=== PATIENT | female | born 1960 | race Hispanic/Latino ===

== ENCOUNTER 2020-06-11 23:11 | Emergency (ER) | payer OTHER ==
[~2020-06-11] VITALS: Ht 172.7 cm; Wt 97.5 kg
[2020-06-11] MEDS ORDERED: DEXAMETHASONE SOD PHOS 10 MG/1 ML VIAL IV ONE (23:30)
[2020-06-11] MEDS ORDERED: ACETAMINOPHEN 325 MG TAB PO ONE (23:30)
[2020-06-11] MEDS ORDERED: CEFTRIAXONE SOD 1 GM/50 ML BAG IV ONE (23:30)
[2020-06-11] MEDS ORDERED: AZITHROMYCIN 500MG/NS 250 ML 250 ML IV ONE (23:30)
[2020-06-11 23:39] LABS: BASOPHILS % 0.5 % (0.0-1.0); EOSINOPHILS % 0.7 % (0.0-6.0); HEMOGLOBIN 14.3 g/dL (12.0-16.0); LYMPHOCYTES # (AUTO) 0.9 (1.0-3.2); LYMPHOCYTES % 15.4 % (18.0-39.1); MEAN CORPUSCULAR HEMOGLOBIN 30.2 pg (28-32); MEAN CORPUSCULAR HGB CONC 32.5 g/dL (31-35); MONOCYTES # (AUTO) 0.6 (0.2-0.8); MONOCYTES % 10.4 % (4.4-11.3); NEUTROPHILS # (AUTO) 4.2 (2.1-6.9); PLATELET COUNT 382 x10e3/uL (140-360); RED BLOOD COUNT 4.73 x10e6/uL (3.6-5.1); RED CELL DISTRIBUTION WIDTH 13.2 % (11.7-14.4)
[2020-06-11] MEDS ORDERED: SODIUM CHLORIDE 0.9% 50ML 50 ML ONE (23:47)
[2020-06-11] MEDS ORDERED: CEFTRIAXONE SOD 1 GM VIAL ONE (23:47)
[2020-06-12] LABS: ALBUMIN/GLOBULIN RATIO 0.6 (0.8-2.0); ANION GAP 18.9 mmol/L (8-16); CREATININE, SERUM 0.97 mg/dL (0.57-1.11); POTASSIUM 3.9 mmol/L (3.5-5.1)
[2020-06-12 00:06] LABS: CREATINE KINASE MB 0.3 ng/mL (0-5.0)
[2020-06-12] MEDS ORDERED: SODIUM CHLORIDE 0.9% 1000ML 1,000 ML IV ONE (01:15)
== END 2020-06-12 07:40 | disposition other institution (70) ==
LOC: ER 23:18
DX: U07.1 COVID-19 (principal); R05 Cough; J18.9 Pneumonia, unspecified organism; R09.02 Hypoxemia; Z99.81 Dependence on supplemental oxygen; R94.31 Abnormal electrocardiogram [ECG] [EKG]
CPT/HCPCS: 36415; 71045; 80053; 82550; 82553; 84484; 85025; 87040; 87071; 87205; 93005; 99284; J0456; J0696; J1100; U0002

== ENCOUNTER 2021-05-25 21:37 | Emergency (ER) | payer OTHER ==
[~2021-05-25] VITALS: Ht 172.7 cm; Wt 97.5 kg
[2021-05-25] MEDS ORDERED: ASPIRIN 81 MG CHEW TAB PO ONE (22:00)
[2021-05-25 22:02] LABS: BASOPHILS % 0.8 % (0.0-1.0); EOSINOPHILS # (AUTO) 0.3 (0.0-0.4); HEMATOCRIT 41.5 % (34.2-44.1); HEMOGLOBIN 13.4 g/dL (12.0-16.0); LYMPHOCYTES % 38.8 % (18.0-39.1); MEAN CORPUSCULAR HEMOGLOBIN 31.1 pg (28-32); MEAN CORPUSCULAR HGB CONC 32.3 g/dL (31-35); MEAN CORPUSCULAR VOLUME 96.3 fL (81-99); MONOCYTES # (AUTO) 0.5 (0.2-0.8); MONOCYTES % 9.8 % (4.4-11.3); NEUTROPHILS # (AUTO) 2.4 (2.1-6.9); NEUTROPHILS % 45.4 % (38.7-80.0); PLATELET COUNT 280 x10e3/uL (140-360); RED BLOOD COUNT 4.31 x10e6/uL (3.6-5.1); RED CELL DISTRIBUTION WIDTH 13.4 % (11.7-14.4)
[2021-05-25 22:28] LABS: ALANINE AMINOTRANSFERASE 73 IU/L (0-55); ALBUMIN 3.4 g/dL (3.5-5.0); ALBUMIN/GLOBULIN RATIO 0.9 (0.8-2.0); ALKALINE PHOSPHATASE 138 IU/L (40-150); ANION GAP 12.1 mmol/L (8-16); BLOOD UREA NITROGEN 17 mg/dL (7-26); BUN/CREATININE RATIO 18 (6-25); CALCIUM 8.7 mg/dL (8.4-10.2); CARBON DIOXIDE 24 mmol/L (22-29); CHLORIDE 110 mmol/L (98-107); CREATINE KINASE 45 IU/L (29-168); CREATININE, SERUM 0.96 mg/dL (0.57-1.11); EST GLOMERULAR FILTRATION RATE 59 ML/MIN (60-); GLUCOSE 123 mg/dL (74-118); POTASSIUM 4.1 mmol/L (3.5-5.1); SODIUM 142 mmol/L (136-145)
[2021-05-25] MEDS ORDERED: IOPAMIDOL 370 MG/ML 200 ML INFUS..BTL INJ ONE (23:04)
[2021-05-25] MEDS ORDERED: SODIUM CHLORIDE 0.9% 100 ML ONE (23:04)
[2021-05-26 00:37] VITALS: BP 134/80
== END 2021-05-26 00:41 | disposition home or self-care (01) ==
LOC: ER 21:43
DX: G45.9 Transient cerebral ischemic attack, unspecified (principal)
CPT/HCPCS: 36415; 70496; 70498; 71045; 80053; 82550; 82553; 84484; 85025; 99284; J7050; Q9967; 93005

== ENCOUNTER → 2022-07-01 | Outpatient (CLI) | payer OTHER ==
[~2022-07-01] MED LIST: BENZONATATE100 MG PO; DIATRIZOATE MEGL/DIATRIZOA SOD 30 ML BTL PO ONE; FEROSUL325 MG PO; IOPAMIDOL 370 MG/ML 100 ML INFUS..BTL INJ ONE; LEVOTHYROXINE50 MCG PO; NEXIUM40 MG PO; SODIUM CHLORIDE 0.9% 100 ML ONE; TALICIA PO; VITAMIN D3250 MCG PO
[2022-07-01 10:30] LABS: CREATININE, SERUM 0.81 mg/dL (0.57-1.11)
== END ==
LOC: CT 09:48
PROVIDERS: ATTEND Internal Medicine Gastroenterology
DX: K22.89 Other specified disease of esophagus (principal); K44.9 Diaphragmatic hernia without obstruction or gangrene; K31.89 Other diseases of stomach and duodenum; K63.5 Polyp of colon
CPT/HCPCS: 36415; 74177; 82565; 84520; J7050; Q9963; Q9967

== ENCOUNTER 2022-07-11 07:49 | Inpatient (IN) | payer OTHER ==
[2022-07-09 10:29] LABS: BASOPHILS # (AUTO) 0.1 (0.0-0.1); BASOPHILS % 1.9 % (0.0-1.0); EOSINOPHILS # (AUTO) 0.2 (0.0-0.4); EOSINOPHILS % 5.9 % (0.0-6.0); HEMATOCRIT 28.2 % (34.2-44.1); HEMOGLOBIN 7.7 g/dL (12.0-16.0); LYMPHOCYTES # (AUTO) 1.6 (1.0-3.2); LYMPHOCYTES % 42.9 % (18.0-39.1); MEAN CORPUSCULAR HEMOGLOBIN 19.8 pg (28-32); MEAN CORPUSCULAR HGB CONC 27.3 g/dL (31-35); MEAN CORPUSCULAR VOLUME 72.5 fL (81-99); MONOCYTES # (AUTO) 0.4 (0.2-0.8); MONOCYTES % 10.5 % (4.4-11.3); NEUTROPHILS # (AUTO) 1.4 (2.1-6.9); NEUTROPHILS % 38.8 % (38.7-80.0); PLATELET COUNT 399 x10e3/uL (140-360); RED BLOOD COUNT 3.89 x10e6/uL (3.6-5.1); RED CELL DISTRIBUTION WIDTH 26.9 % (11.7-14.4)
[2022-07-09 10:58] LABS: ALBUMIN 3.4 g/dL (3.5-5.0); ANION GAP 10.2 mmol/L (8-16); CALCIUM 8.6 mg/dL (8.4-10.2); CREATININE, SERUM 0.77 mg/dL (0.57-1.11); POTASSIUM 4.2 mmol/L (3.5-5.1)
[~2022-07-11] VITALS: Ht 172.7 cm; Wt 90.3 kg
[~2022-07-11 07:49] MED LIST changes: -DIATRIZOATE MEGL/DIATRIZOA SOD 30 ML BTL PO ONE; -IOPAMIDOL 370 MG/ML 100 ML INFUS..BTL INJ ONE; -SODIUM CHLORIDE 0.9% 100 ML ONE
[2022-07-11] MEDS ORDERED: LACTATED RINGER'S 1,000 ML ONE (08:16)
[2022-07-11] MEDS ORDERED: BUPIVACAINE 0.25% 30ML SDV ONE (11:12)
[2022-07-11] MEDS ORDERED: ONDANSETRON HCL INJ 2MG/ML 2ML 2 MG/ML VIAL IV PRN (12:15)
[2022-07-11] MEDS ORDERED: KETOROLAC TROMETHAMINE 30 MG/ML VIAL IV PRN (12:15)
[2022-07-11] MEDS ORDERED: HYDROCODONE/APAP 5MG-325MG TAB PO PRN (12:15)
[2022-07-11] MEDS ORDERED: HYDROMORPHONE 1MG/1ML INJ IV PRN (12:15)
[2022-07-11] MEDS ORDERED: POVIDONE IODINE 0.05% 0.05 % ML PO ONE (12:23)
[2022-07-11] MEDS ORDERED: PROPOFOL IV EMULSION 10 MG/ML 20 ML VIAL ONE (12:23)
[2022-07-11] MEDS ORDERED: LIDOCAINE HCL 2% LOCAL INJ 5 ML SDV VIAL INJ ONE (12:23)
[2022-07-11] MEDS ORDERED: PHENYLEPHRINE HCL 1% 10 MG/ML VIAL ONE (12:23)
[2022-07-11] MEDS ORDERED: ONDANSETRON HCL INJ 2MG/ML 2ML 2 MG/ML VIAL ONE (12:23)
[2022-07-11] MEDS ORDERED: DEXAMETHASONE SOD PHOS INJ 4 MG/ML SDV ONE (12:23)
[2022-07-11] MEDS ORDERED: NEOSTIGMINE 1 MG/ML 10ML VIAL ONE (12:23)
[2022-07-11] MEDS ORDERED: ROCURONIUM BROMIDE 10 MG/ML 5ML VIAL IV ONE (12:23)
[2022-07-11] MEDS ORDERED: EPHEDRINE SULFATE INJ 50 MG/ML VIAL ONE (12:23)
[2022-07-11] MEDS ORDERED: GLYCOPYRROLATE INJ 0.2 MG/ML VIAL ONE (12:23)
[2022-07-11] MEDS ORDERED: KETOROLAC TROMETHAMINE 30 MG/ML VIAL ONE (12:23)
[2022-07-11] MEDS ORDERED: MIDAZOLAM HCL 2 MG/2 ML VIAL ONE (13:06)
[2022-07-11] MEDS ORDERED: FENTANYL CITRATE/PF 100MCG/2 ML INJ ONE (13:06)
[2022-07-11 13:50] VITALS: BP 119/64; PULSE 58; RESP 15; TEMP 97.7; O2SAT 98
[2022-07-11 14:28] VITALS: PULSE 73; RESP 16; O2SAT 100
[2022-07-11 16:00] VITALS: BP 128/73; PULSE 71; RESP 15; TEMP 97.8; O2SAT 100
[2022-07-11] MEDS: SODIUM CHLORIDE 0.9% IV SCH (16:22)
[2022-07-11] MEDS: ACETAMINOPHEN 1000 MG/100 ML IV SCH ×2 (16:22→23:50)
[2022-07-11] MEDS: CEFOXITIN IV SCH (16:22)
[2022-07-11 19:30] VITALS: BP 112/66; PULSE 79; RESP 18; TEMP 98.5; O2SAT 97
[2022-07-11 19:47] VITALS: PULSE 79; RESP 18; O2SAT 97
[2022-07-11 20:00] VITALS: BP 112/66; PULSE 79; RESP 18; TEMP 98.5; O2SAT 97
[2022-07-12] VITALS (9 sets, daily range): BP systolic 108–124; BP diastolic 66–82; PULSE 63–86; RESP 18; TEMP 98.2–99.1; O2SAT 94–99
[2022-07-12] MEDS: CEFOXITIN IV SCH ×2 (02:10→09:15)
[2022-07-12] MEDS: SODIUM CHLORIDE 0.9% IV SCH ×2 (02:10→09:15)
[2022-07-12 05:10] LABS: BASOPHILS # (AUTO) 0.1 (0.0-0.1); BASOPHILS % 0.8 % (0.0-1.0); EOSINOPHILS % 0.3 % (0.0-6.0); HEMATOCRIT 26.7 % (34.2-44.1); HEMOGLOBIN 7.2 g/dL (12.0-16.0); LYMPHOCYTES # (AUTO) 1.3 (1.0-3.2); LYMPHOCYTES % 20.3 % (18.0-39.1); MEAN CORPUSCULAR HEMOGLOBIN 19.9 pg (28-32); MEAN CORPUSCULAR VOLUME 73.8 fL (81-99); MONOCYTES # (AUTO) 0.9 (0.2-0.8); MONOCYTES % 13.2 % (4.4-11.3); NEUTROPHILS # (AUTO) 4.3 (2.1-6.9); NEUTROPHILS % 65.2 % (38.7-80.0); PLATELET COUNT 392 x10e3/uL (140-360); RED BLOOD COUNT 3.62 x10e6/uL (3.6-5.1); RED CELL DISTRIBUTION WIDTH 25.8 % (11.7-14.4)
[2022-07-12] MEDS: ACETAMINOPHEN 1000 MG/100 ML IV SCH ×3 (05:20→17:41)
[2022-07-12 05:31] LABS: ANION GAP 14.5 mmol/L (8-16); CALCIUM 8.6 mg/dL (8.4-10.2); CREATININE, SERUM 0.91 mg/dL (0.57-1.11); POTASSIUM 4.5 mmol/L (3.5-5.1)
[2022-07-12 08:34] LABS: PLATELET ESTIMATE ADEQUATE; PLATELET MORPHOLOGY COMMENT NORMAL; RBC MORPHOLOGY COMMENT NORMAL
[2022-07-13] VITALS (9 sets, daily range): BP systolic 106–133; BP diastolic 77–90; PULSE 83–99; RESP 16–18; TEMP 98.6–100.8; O2SAT 97–99
[2022-07-13] MEDS: ACETAMINOPHEN 1000 MG/100 ML IV SCH ×3 (00:11→12:09)
[2022-07-14] VITALS: BP 122/77; PULSE 88; RESP 18; TEMP 99.5; O2SAT 98
[2022-07-14 00:39] VITALS: BP 122/77; PULSE 88; RESP 18; TEMP 99.5; O2SAT 98
[2022-07-14 04:00] VITALS: BP 112/82; PULSE 82; RESP 18; TEMP 99.6; O2SAT 98
[2022-07-14 07:23] VITALS: BP 125/81; PULSE 87; RESP 18; TEMP 98.5; O2SAT 99
[2022-07-14 08:30] VITALS: BP 125/81; PULSE 87; RESP 18; TEMP 98.5; O2SAT 99
[2022-07-14] MEDS ORDERED: ULTRAM 50MG50 MG PO (09:40)
== END 2022-07-14 10:27 | disposition home or self-care (01) | DRG 331 ==
LOC: OR 07:49 → PACU V 12:12 → MED/SURG 13:24
PROVIDERS: ADMIT Surgery; ATTEND Surgery
PROC: 0DTF4ZZ Resection of Right Large Intestine, Percutaneous Endoscopic Approach (ICD-10-PCS; principal; 2022-07-11 10:50)
DX: C18.0 Malignant neoplasm of cecum (principal); D64.9 Anemia, unspecified; Z87.891 Personal history of nicotine dependence
CPT/HCPCS: 0223U; 36415; 80048; 80053; 82378; 85025; 86850; 86900; 86920; 88305; 88309; 88342; 93005; 94799; J0694; J1100; J1170; J1885; J2001; J2250; J2370; J2405; J2710